=== PATIENT | female | born 1955 | race Caucasian/White ===

== ENCOUNTER → 2017-12-24 17:39 | Outpatient (CLI) | payer MEDICAID ==
[2014-01-28 08:29] VITALS: BMI 42.2
[~2017-12-24 17:39] MED LIST: ALEVE220 MG PO; PSEUDO-GEST60 MG PO
== END | disposition home or self-care (01) ==
LOC: D.MAMMO 13:45
DX: Z12.31 Encounter for screening mammogram for malignant neoplasm of breast (principal)

== ENCOUNTER → 2018-01-15 12:07 | Outpatient (CLI) | payer MEDICAID ==
[2014-01-28 08:29] VITALS: BMI 42.2
[~2018-01-15 12:07] MED LIST changes: +AUGMENTIN 875-11 TAB PO; +CELEXA10 MG PO; +DIFLUCAN100 MG PO; +FUROSEMIDE20 MG PO; +GLUCOPHAGE500 MG PO; +K-DUR20 MEQ PO
[2018-02-10 10:07] VITALS: BMI 46.3
== END | disposition home or self-care (01) ==
LOC: D.MAMMO 10:00
DX: R92.8 Other abnormal and inconclusive findings on diagnostic imaging of breast (principal)

== ENCOUNTER 2018-02-07 11:09 | Inpatient (IN) | payer MEDICAID ==
[~2018-02-07] VITALS: Ht 170.2 cm; Wt 130.3 kg
[~2018-02-07 11:09] MED LIST changes: -AUGMENTIN 875-11 TAB PO; -CELEXA10 MG PO; -DIFLUCAN100 MG PO; -FUROSEMIDE20 MG PO; -GLUCOPHAGE500 MG PO; -K-DUR20 MEQ PO
[2018-02-07] MEDS ORDERED: FUROSEMIDE20 MG PO (12:38)
[2018-02-07] MEDS ORDERED: AUGMENTIN 875-11 TAB PO (12:41)
[2018-02-07] MEDS ORDERED: CELEXA10 MG PO (12:42)
[2018-02-07] MEDS ORDERED: DIFLUCAN100 MG PO (12:43)
[2018-02-07 13:21] VITALS: BP 142/62; BMI 46.3
[2018-02-07 15:50] VITALS: BP 151/60
[2018-02-07 21:24] VITALS: BP 113/64
[2018-02-08] VITALS (7 sets, daily range): BP systolic 132–152; BP diastolic 59–84
[2018-02-08 05:18] LABS: EOSINOPHILS 4.2 % (0-7); HEMATOCRIT 38.2 % (36.0-48.0); HEMOGLOBIN 12.5 g/dL (12-16); IMMATURE GRANULOCYTES 0.2 % (0-5); LYMPHOCYTES 41.4 % (15-50); MCH 27.3 pg (26.0-34.0); MCHC 32.7 g/dL (31.0-37.0); MCV 83.4 fL (80.0-100.0); MONOCYTES 9.8 % (2-11); NEUTROPHILS 43.4 % (40-80); PLATELET COUNT 224 10x3/uL (130-400); RBC 4.58 10x6/uL (4.00-5.40); WBC 5.9 10x3/uL (4.8-10.8)
[2018-02-08 05:35] LABS: CALC OSMOLALITY 284 mosm/kg (275-300); CALCIUM 8.4 mg/dL (8.5-10.1); CARBON DIOXIDE 28.8 mmol/L (21.0-32.0); CHLORIDE - SERUM 107 mmol/L (98-107); CREATININE - SERUM 0.5 mg/dL (0.6-1.3); GLUCOSE 135 mg/dL (74-106); POTASSIUM - SERUM 3.8 mmol/L (3.5-5.1); SODIUM 142 mmol/L (136-145); UREA NITROGEN 12 mg/dL (7-18); eGFR NON AFRICAN AMERICAN > 90 mL/min (90-120)
[2018-02-09 04:00] VITALS: BP 125/60
[2018-02-09 06:38] LABS: BASOPHILS 0.5 % (0-2); EOSINOPHILS 3.9 % (0-7); HEMATOCRIT 40.4 % (36.0-48.0); HEMOGLOBIN 13.2 g/dL (12-16); IMMATURE GRANULOCYTES 0.2 % (0-5); LYMPHOCYTES 37.5 % (15-50); MCH 27.3 pg (26.0-34.0); MCHC 32.7 g/dL (31.0-37.0); MCV 83.6 fL (80.0-100.0); MONOCYTES 7.7 % (2-11); NEUTROPHILS 50.2 % (40-80); PLATELET COUNT 234 10x3/uL (130-400); RBC 4.83 10x6/uL (4.00-5.40); RDW 13.8 % (11.5-14.5); WBC 6.2 10x3/uL (4.8-10.8)
[2018-02-09 06:59] LABS: CALC OSMOLALITY 279 mosm/kg (275-300); CALCIUM 8.7 mg/dL (8.5-10.1); CARBON DIOXIDE 27.8 mmol/L (21.0-32.0); CHLORIDE - SERUM 105 mmol/L (98-107); CREATININE - SERUM 0.6 mg/dL (0.6-1.3); GLUCOSE 142 mg/dL (74-106); POTASSIUM - SERUM 4.2 mmol/L (3.5-5.1); SODIUM 139 mmol/L (136-145); UREA NITROGEN 13 mg/dL (7-18); eGFR NON AFRICAN AMERICAN > 90 mL/min (90-120)
[2018-02-09 08:00] VITALS: BP 132/62
[2018-02-09 08:45] VITALS: BP 132/69
[2018-02-09 11:12] VITALS: BP 126/72
[2018-02-10 04:00] VITALS: BP 117/51
[2018-02-10 06:41] LABS: EOSINOPHILS 3.8 % (0-7); HEMATOCRIT 39.3 % (36.0-48.0); HEMOGLOBIN 12.7 g/dL (12-16); IMMATURE GRANULOCYTES 0.3 % (0-5); LYMPHOCYTES 41.3 % (15-50); MCH 27.1 pg (26.0-34.0); MCHC 32.3 g/dL (31.0-37.0); MCV 83.8 fL (80.0-100.0); MEAN PLATELET VOLUME 8.8 fL (7.4-10.4); NEUTROPHILS 44.6 % (40-80); PLATELET COUNT 238 10x3/uL (130-400); RBC 4.69 10x6/uL (4.00-5.40); WBC 6.9 10x3/uL (4.8-10.8)
[2018-02-10 07:10] LABS: CALC OSMOLALITY 279 mosm/kg (275-300); CALCIUM 8.6 mg/dL (8.5-10.1); CARBON DIOXIDE 24.9 mmol/L (21.0-32.0); CHLORIDE - SERUM 106 mmol/L (98-107); CREATININE - SERUM 0.5 mg/dL (0.6-1.3); GLUCOSE 143 mg/dL (74-106); POTASSIUM - SERUM 4.2 mmol/L (3.5-5.1); SODIUM 139 mmol/L (136-145); UREA NITROGEN 13 mg/dL (7-18); eGFR NON AFRICAN AMERICAN > 90 mL/min (90-120)
[2018-02-10 08:35] VITALS: BP 155/78
[2018-02-10 10:07] VITALS: Ht 170.2 cm; Wt 130.3 kg
[2018-02-10 11:55] VITALS: BP 139/69
[2018-02-10 15:47] VITALS: BP 167/80
[2018-02-10 20:00] VITALS: BP 130/60
[2018-02-11] VITALS: BP 133/52
[2018-02-11 04:00] VITALS: BP 124/49
[2018-02-11 05:35] LABS: BASOPHILS 0.8 % (0-2); EOSINOPHILS 3.8 % (0-7); HEMATOCRIT 38.8 % (36.0-48.0); HEMOGLOBIN 13.2 g/dL (12-16); IMMATURE GRANULOCYTES 0.1 % (0-5); LYMPHOCYTES 37.1 % (15-50); MCH 28.2 pg (26.0-34.0); MCV 82.9 fL (80.0-100.0); MEAN PLATELET VOLUME 8.9 fL (7.4-10.4); MONOCYTES 6.9 % (2-11); NEUTROPHILS 51.3 % (40-80); PLATELET COUNT 227 10x3/uL (130-400); RBC 4.68 10x6/uL (4.00-5.40); RDW 13.9 % (11.5-14.5); WBC 7.7 10x3/uL (4.8-10.8)
[2018-02-11 06:19] LABS: CALC OSMOLALITY 277 mosm/kg (275-300); CHLORIDE - SERUM 103 mmol/L (98-107); CREATININE - SERUM 0.6 mg/dL (0.6-1.3); GLUCOSE 134 mg/dL (74-106); POTASSIUM - SERUM 4.1 mmol/L (3.5-5.1); SODIUM 138 mmol/L (136-145); UREA NITROGEN 13 mg/dL (7-18); eGFR NON AFRICAN AMERICAN > 90 mL/min (90-120)
[2018-02-11 08:29] VITALS: BP 166/81
[2018-02-11 11:45] VITALS: BP 158/73
[2018-02-11 15:49] VITALS: BP 149/77
[2018-02-11 20:00] VITALS: BP 138/71
[2018-02-12] VITALS: BP 121/50
[2018-02-12 04:00] VITALS: BP 154/79
[2018-02-12 05:59] LABS: BASOPHILS 0.9 % (0-2); EOSINOPHILS 4.4 % (0-7); HEMOGLOBIN 13.1 g/dL (12-16); IMMATURE GRANULOCYTES 0.1 % (0-5); MCH 27.3 pg (26.0-34.0); MCHC 32.8 g/dL (31.0-37.0); MCV 83.5 fL (80.0-100.0); MEAN PLATELET VOLUME 9.1 fL (7.4-10.4); MONOCYTES 8.1 % (2-11); NEUTROPHILS 49.5 % (40-80); PLATELET COUNT 232 10x3/uL (130-400); RBC 4.79 10x6/uL (4.00-5.40); RDW 13.8 % (11.5-14.5); WBC 6.8 10x3/uL (4.8-10.8)
[2018-02-12 06:11] LABS: CALC OSMOLALITY 278 mosm/kg (275-300); CALCIUM 8.8 mg/dL (8.5-10.1); CARBON DIOXIDE 30.1 mmol/L (21.0-32.0); CHLORIDE - SERUM 103 mmol/L (98-107); CREATININE - SERUM 0.5 mg/dL (0.6-1.3); GLUCOSE 127 mg/dL (74-106); POTASSIUM - SERUM 4.2 mmol/L (3.5-5.1); SODIUM 138 mmol/L (136-145); UREA NITROGEN 15 mg/dL (7-18); eGFR NON AFRICAN AMERICAN > 90 mL/min (90-120)
[2018-02-12 09:06] VITALS: BP 144/77
[2018-02-12 13:26] VITALS: BP 166/88
[2018-02-12 17:31] VITALS: BP 154/81
[2018-02-12 21:05] VITALS: BP 132/67
[2018-02-13 01:36] VITALS: BP 131/83
[2018-02-13 06:09] VITALS: BP 155/56
[2018-02-13] MEDS ORDERED: K-DUR20 MEQ PO (07:56)
[2018-02-13] MEDS ORDERED: GLUCOPHAGE500 MG PO (07:57)
[2018-02-13 09:08] VITALS: BP 148/74
== END 2018-02-13 20:34 | disposition home or self-care (01) | DRG 603 ==
LOC: D.M2 11:09
PROVIDERS: Family Medicine
DX: L03.116 Cellulitis of left lower limb (principal); I80.3 Phlebitis and thrombophlebitis of lower extremities, unspecified; L03.115 Cellulitis of right lower limb; I83.90 Asymptomatic varicose veins of unspecified lower extremity; I73.9 Peripheral vascular disease, unspecified

== ENCOUNTER 2018-07-17 07:17 | Outpatient (CLI) | payer MEDICAID ==
[2018-02-10 10:07] VITALS: BMI 46.3
[~2018-07-17 07:17] MED LIST changes: +AUGMENTIN 875-11 TAB PO; +CELEXA10 MG PO; +DIFLUCAN100 MG PO; +FUROSEMIDE20 MG PO; +GLUCOPHAGE500 MG PO; +K-DUR20 MEQ PO
== END 2018-07-17 07:20 | disposition home or self-care (01) ==
LOC: D.MAMMO 07:17
DX: R92.8 Other abnormal and inconclusive findings on diagnostic imaging of breast (principal)

== ENCOUNTER → 2019-10-16 10:00 | Outpatient (CLI) | payer MEDICAID ==
[2018-02-10 10:07] VITALS: BMI 46.3
== END | disposition home or self-care (01) ==
LOC: D.MAMMO 10:00
PROVIDERS: ATTEND Family Medicine
DX: Z12.31 Encounter for screening mammogram for malignant neoplasm of breast (principal)